=== PATIENT | female | born 1975 | race Caucasian/White ===

== ENCOUNTER → 2020-01-04 14:02 | Outpatient (CLI) | payer OTHER, MEDICAID, SELFPAY ==
[2020-01-04 16:09] LABS: Follicle Stimulating Hormone 0.99 mIU/mL
[2020-01-04 16:53] LABS: Hepatitis B Surface Antigen NEGATIVE s/c (NEGATIVE)
[2020-01-04 17:06] LABS: HIV 1 & 2 Ab/Ag 4th Gen Combo NEGATIVE (NEGATIVE); Hep C Virus Ab w/Reflex Quant NEGATIVE s/c (NEGATIVE)
[2020-01-06 20:37] LABS: RPR Screen Nonreactive (Nonreactive)
[2020-01-14 13:44] LABS: C.trachomatis RNA NOT DETECTED; N.gonorrhoeae RNA NOT DETECTED
== END ==
PROVIDERS: Family Provider Obstetrics & Gynecology; Referring Provider Obstetrics & Gynecology; Visit Provider Obstetrics & Gynecology
DX: Z11.3 Encounter for screening for infections with a predominantly sexual mode of transmission (principal); N95.1 Menopausal and female climacteric states
CPT/HCPCS: 36415; 83001; 86592; 86803; 87340; 87389; 87491; 87591

== ENCOUNTER → 2020-07-25 13:07 | Outpatient (CLI) | payer OTHER, MEDICAID, SELFPAY | PROVIDERS: Family Provider Obstetrics & Gynecology; PCP Obstetrics & Gynecology; Visit Provider Obstetrics & Gynecology | DX: R31.9 Hematuria, unspecified (principal) | CPT/HCPCS: 87086 ==

== ENCOUNTER → 2020-09-17 15:31 | Outpatient (CLI) | payer OTHER, MEDICAID, SELFPAY ==
--- NOTE | 2020-09-17 15:31 | DI.CT.S_ITS ---
PROCEDURE: CT KIDNEY URETER BLADDER (KUB) INDICATIONS: hematuria TECHNIQUE: Noncontrast 5 mm thick sections acquired from the diaphragms to the symphysis. 5 mm thick coronal and sagittal reformats were then performed. For radiation dose reduction, the following was used: automated exposure control, adjustment of mA and/or kV according to patient size. COMPARISON: Outside Film, CT, CT ABDOMEN PELVIS WITHOUT CONTRAST, 10/01/2019, 14:04. FINDINGS: Image quality: Excellent. Lung bases: Lung bases are clear. Heart size is normal. Urinary system: Both kidneys are normal in size. No kidney stones. No hydronephrosis or perinephric fat stranding. Both ureters appear non-dilated throughout their expected courses. Bladder wall thickness is normal; no calcified bladder stones. Other solid organs: Liver is normal in size. 0.8 centimeter hypoattenuating lesion in the posterior-superior subsegment of the right lobe of the liver is stable compared to prior examination and may represent a hepatic cyst. Gallbladder is within normal limits. Pancreas is normal in contours. Spleen is normal in size. No adrenal nodules. Peritoneum and bowel: Unenhanced bowel loops demonstrate normal wall thickness and caliber. Scattered colonic diverticuli noted without evidence of diverticulitis. No free fluid or air. Appendix is normal. Nodes and vessels: No retroperitoneal or mesenteric adenopathy by size criteria. Aorta and inferior vena cava are normal in caliber. Abdominal wall: No ventral hernias. Pelvis: No free pelvic fluid. No inguinal hernias or adenopathy. Bones: No suspicious bony lesions. No vertebral body compression fractures. Spine degenerative disc disease and facet arthropathy. IMPRESSION: 1. No renal stone or hydronephrosis. 2. Colonic diverticulosis without evidence of diverticulitis. Dictated by: Paulina Richter MD, PhD on 09/17/2020 at 16:00 Approved by: Paulina Richter MD, PhD on 09/17/2020 at 16:05
== END ==
PROVIDERS: Family Provider Obstetrics & Gynecology; PCP Obstetrics & Gynecology; Referring Provider Obstetrics & Gynecology; Visit Provider Specialist
DX: R31.9 Hematuria, unspecified (principal); K57.90 Diverticulosis of intestine, part unspecified, without perforation or abscess without bleeding; Z91.041 Radiographic dye allergy status
CPT/HCPCS: 74176

== ENCOUNTER → 2020-10-08 10:49 | Outpatient (CLI) | payer OTHER, MEDICAID, SELFPAY ==
[2020-10-08 11:27] LABS: COVID19 -Nasal RAPID Negative (Negative)
== END ==
PROVIDERS: Family Provider Obstetrics & Gynecology; Visit Provider Obstetrics & Gynecology
DX: Z01.818 Encounter for other preprocedural examination (principal)
CPT/HCPCS: 87635

== ENCOUNTER 2020-10-11 06:45 | Day surgery (SDC) | payer OTHER, MEDICAID, SELFPAY ==
[2020-10-08 15:00] VITALS: BMI 34.8
[2020-10-11] VITALS (18 sets, daily range): BP systolic 112–140; BP diastolic 71–94; PULSE 64–99; RESP 10–16; TEMP 35.7–37.1; O2SAT 95–100; BMI 34.8
--- NOTE | 2020-10-11 | PATH_ITS ---
[facility] Accession Number: [id number] . 01 Material submitted: . PART A: fallopian tube - RIGHT FALLOPIAN TUBE PART B: ovary - LEFT OVARIAN CYST . 01 Clinical history: . PELVIC W/GRADE / CYSTO W/LEVWITCH *OPB* . 02 Diagnosis: A. Right Fallopian Tube, Salpingectomy: Fallopian tube with features of hydrosalpinx. Negative for epithelial atypia or malignancy. . B. Left Ovarian Cyst: Fragments of ovarian cyst, most compatible with benign endometrioma. MRV 10/15/2020 1138 Local . 02 Electronically signed: . Charmaine Desai MD, Pathologist NPI- [id number] . 01 Gross description: . A. Specimen A is received in formalin, labeled right fallopian tube and consists of a 3.0 x 2.0 x 1.5 cm fitzpatrick-pink portion of fallopian tube with attached soft tissue. Sectioning reveals a fitzpatrick mucosa and a lumen measuring 0.5 cm in diameter. The specimen is serially sectioned and entirely submitted in cassettes A1-A3. B. Specimen B is received in formalin, labeled left ovarian cyst and consists of multiple fitzpatrick-pink to brown cyst fragments with a fitzpatrick-pink smooth external surface and a fitzpatrick-pink to brown smooth inner lining with no papillary excrescences. The specimen is serially sectioned and entirely submitted in cassettes B1-B2. ([id number]) /[facility] 10/12/2020 1720 Local . 02 Pathologist provided ICD-10: R10.2, N94.10, R31.9, N32.9 . 02 CPT . 802306, 620298 Performed at: 01 [facility] [address] [place] [address] [address], [place] [id number] MD Servando Astudillo MD Phone: [phone] Performed at: 02 [facility] [address] [place] [id number] MD Caryl Pope MD Phone: [phone]
--- NOTE | 2020-10-11 | DI.RAD.S_ITS ---
PROCEDURE: XR ABDOMEN 1V INDICATIONS: retrograde pyelogram TECHNIQUE: One view of the abdomen acquired. COMPARISON: None. FINDINGS: Bilateral intraoperative fluoroscopic views demonstrate retrograde bilateral pyelograms. IMPRESSION: Single bilateral retrograde intraoperative fluoroscopic pyelograms. Dictated by: Michelle Cervantes M.D. on 10/11/2020 at 9:31 Approved by: Michelle Cervantes M.D. on 10/11/2020 at 9:31
[2020-10-11] MEDS: LACTATED RINGERS 1,000 ML 100 ML IV (07:01)
[2020-10-11] MEDS: CEFAZOLIN 2 GM/100 ML FROZ.PIGGY IV (07:44)
--- NOTE | 2020-10-11 07:44 | PM.PREOP ---
Pre-operative Note Interval Note History & Physical reviewed/Exam performed by Physician: Yes Changes to H&P: No
[2020-10-11] MEDS: IOPAMIDOL 15 ML VIAL INJ (08:15)
--- NOTE | 2020-10-11 08:21 | SUR.OPER ---
Lithotomy on padded OR bed. [place] Pad Positioner under torso. Head on pillow, arms padded and tucked at sides. Legs secured in padded yellow fins stirrups.
--- NOTE | 2020-10-11 08:32 | PM.PREOP ---
Pre-operative Note COVID-19 COVID-19 status: Negative Result date/Date tested (Pos, Neg/Pending): 10/08/20 Interval Note History & Physical reviewed/Exam performed by Physician: Yes Changes to H&P: No H&P completed within 30 days and has changed as indicated here:: 10/08/2020
[2020-10-11] MEDS: BUPIVACAINE 0.5% W/ EPI (PF) 30 ML VIAL INJ (08:50)
--- NOTE | 2020-10-11 09:01 | SUR.OPER ---
post hydrodistension urine amount 725. DMSO instilled, neves clamped for 30 minutes
--- NOTE | 2020-10-11 09:06 | SUR.OPER ---
Time out for laparoscopy procedure at 0842
--- NOTE | 2020-10-11 09:44 | PM.GYNOP.1 ---
Operative Date/Time/Diagnoses Date of procedure: 10/11/20 Time of procedure: 09:44 Pre-op diagnosis: Dyspareunia History of endometriosis Possible left ovary stuck to the cervix Post-op diagnosis: same Procedure & Clinicians Procedure: Procedures Operation Date: 10/11/20 07:45 Actual Procedures Side Surgeon s Cystoscopy/Bilateral Retrograde Pyelograms/ Hydrodistension/ Instillation DMSO Guido Torres MD p Dx Laparoscopy, right salpingectomy, excision of an epicloic appendicy, left ovarian cyst removal. Lysis of adhesions Julieta Ragsdale MD Indications: Dyspareunia History of endometriosis Possible left ovary stuck to the cervix Surgeon: Julieta Ragsdale [employer] Machinist: Crystal Lacy Anesthesia Type: General Operative Notes Findings: Uterus is absent. Cervix is repair taenia lysed. Epiploic appendices see stuck to the right edge of the cervix Adhesions between the bowel and the cervix 2 x 2 cm endometrioma of the left ovary 5 x 3 cm hydrosalpinx on the right Normal right ovary Normal liver and gallbladder Normal appendix Closure Type: primary Specimen(s): portion of right tube and other (Left ovarian endometrioma) Applied: catheter Estimated blood loss (mL): 5 Blood products transfused: none Procedure in detail: The patient was taken to the operating room where she was placed in the dorsal supine position by Dr. Torres. After his retrograde pyelogram and instillation of DMSO in the bladder, the patient was re-prepped and draped in the dorsal lithotomy position. A time-out was performed. A moistened sponge stick was placed into the vagina. Attention was then turned to the abdomen where 6 cc of 0.5% Marcaine with epinephrine were injected in the umbilical fold. A 5 mm incision was made. Veress needle was placed into the peritoneal cavity, and its placement confirmed by aspiration and drop test. The abdominal cavity was insufflated with 3.5 L of CO2. The Veress needle was removed, and a 5 mm trocar was placed without difficulty. Two other incisions were made through previous incisions, 4 cm lateral to the midline, after 6 cc of 0.5% Marcaine with epinephrine were injected. Two 5 mm trocars were placed under direct visualization. A probe was used to remove the bowel from the pelvis. There was some green/yellow fluid. A sample of this fluid was sent to cytology. The left ovary was grasped by the cyst. Using the PlasmaKinetic, the endometrioma was excised from the left ovary. This was brought through the trocar. The right tube was grasped with an atraumatic grasper. Using the PlasmaKinetic, the tube was from the mesosalpinx. The hydrosalpinx was deflated. The tube was brought through the 5 mm trocar. There was an epiploic appendice was stuck to the cervix. This was grasped. It was not connected to anything else other than the cervix. Using the PlasmaKinetic, the epiploic appendices was excised from the cervix and brought through the 5 mm trocar. There were some adhesions between the bowel and the cervix and posterior cul-de-sac. These were taken down with the PlasmaKinetic. The pelvis was copiously irrigated with warm normal saline. There was no bleeding noted. The instruments were removed from the abdomen. The CO2 was allowed to escape. The incisions were repaired with 4 0 Biosyn in a subcuticular fashion. Steri-Strips, gauze, and Op site were placed. The moistened sponge stick was removed from the vagina. Sponge, lap, and instrument counts were correct x2. The patient tolerated the procedure well, and was taken to PACU in stable condition. Complications: none Post-operative Condition: stable Disposition: PACU Plan for aftercare: Home after recovery
[2020-10-11] MEDS: fentaNYL 100 MCG/2 ML INJ IV ×2 (09:56→10:01)
[2020-10-11] MEDS: ONDANSETRON 4 MG/2 ML INJ IV (09:58)
[2020-10-11] MEDS: HYDROMORPHONE 2 MG TABLET PO ×2 (10:22→12:41)
--- NOTE | 2020-10-11 10:52 | SUR.PHASEII ---
Patient received from Phase I recovery nurses in stable condition. Patient remains with ben hugger in place and c/o mild nausea. Patient currently on the bedpan and will call let the nurse know when she is ready to be moved off bedpan. Call light in place.
--- NOTE | 2020-10-11 11:28 | SUR.PHASEII ---
Removed bed pain from patient; patient voided 100 mls clear, yellow urine. Patient denies any pain at this time and c/o mild nausea. Juice provided. Dressings remain clean, dry and intact.
--- NOTE | 2020-10-11 11:50 | SUR.PHASEII ---
Patient ambulating to the bathroom with minimal assistance. Dressings remain clean, dry and intact. All discharge instructions reviewed again with patient.
--- NOTE | 2020-10-11 12:46 | SUR.PHASEII ---
Pt wanting pain pill before she leaves and feeling a bit nauseated as well, order received by Dr Jeornimo and given to pt with some vanilla pudding. MARCOS Corrigan back from lunch break and taking over for me. Pt able to walk back to br to void 2nd time, gait steady.
--- NOTE | 2020-10-12 07:30 | P.OP_ITS ---
Operative Date/Time/Diagnoses Date of procedure: 10/11/20 Time of procedure: 08:20 Pre-op diagnosis: 1. Microscopic hematuria 2. Pelvic pain Post-op diagnosis: same Procedure & Clinicians Procedure: 1. Cystoscopy and bilateral retrograde pyelograms 2. Cystoscopy and hydrodistention 3. Instillation DMSO Same procedure as scheduled: Yes Indications: 1. Microscopic hematuria (IV contrast allergy). 2. Pelvic pain Surgeon: Guido Torres Click Yes if Unassisted: Yes Anesthesia Type: General Operative Notes Findings: 1. Urethra-normal caliber and without lesion. 2. Bladder-normal urothelium throughout. Normal ureteral orifices bilaterally with clear efflux. Bladder capacity for hydrodistention was measured at 725 cc. No significant petechiae formation following 2 minutes hydrodistention. 3. Bilateral retrograde pyelograms-normal appearing collecting systems without filling defect, or hydronephrosis. Both systems drained promptly following performance of retrograde contrast imaging. Closure Type: not applicable Specimen(s): none sent Applied: catheter (Sixteen [place] silicone catheter) Estimated Blood Loss (mL): 0 Blood products transfused: none Tourniquet time (min): 0 Procedure in detail: Patient was positioned in supine and was administered general anesthesia. She was then repositioned in semi lithotomy and the lower abdomen, genitalia, groin, and vaginal vault were prepped and draped in sterile fashion. The 22 [place] panendoscope was then passed lower urinary tract with the findings as described above. A cone-tip catheter was then selected and bilateral retrograde pyelography was performed with the findings as described above. Next, the bladder was filled to capacity and maintained for 2 minutes distention. The bladder was then drained for a measured volume of 725 cc. Upon reinspection of the bladder there were minimal petechiae. 50 cc of DMSO were instilled into the empty bladder and the panendoscope was removed. A 16 [place] silicone Mireles catheter was then dense inserted and clamped for anticipated 30 minutes retention before being placed back to gravity drainage. Dr. Ragsdale then proceeded with her portion of the operative plan, the details of which can be found in her operative report. Complications: none Post-operative Condition: stable Disposition: Acute Care
== END 2020-10-11 13:00 | disposition home or self-care (01) ==
LOC: OR 06:47 → AC 06:50 → OR 11:50
PROVIDERS: Specialist; Family Provider Obstetrics & Gynecology; Referring Provider Obstetrics & Gynecology; Visit Provider Obstetrics & Gynecology
PROC: (CPT 52005; principal; 2020-10-11 07:45)
PROC: 0U5B4ZZ Destruction of Endometrium, Percutaneous Endoscopic Approach (ICD-10-PCS; CPT 58662; 2020-10-11 07:45)
DX: N80.1 Endometriosis of ovary (principal); R31.29 Other microscopic hematuria; R39.15 Urgency of urination; Q43.8 Other specified congenital malformations of intestine; K66.0 Peritoneal adhesions (postprocedural) (postinfection); N70.11 Chronic salpingitis
CPT/HCPCS: 58662; 52005; 58661; 74018; 76000; J0690; J1100; J1885; J2250; J2405; J2704; J3010

== ENCOUNTER → 2023-02-26 15:09 | Outpatient (CLI) | payer OTHER, MEDICAID, SELFPAY ==
--- NOTE | 2023-02-26 15:11 | DI.US.S_ITS ---
PROCEDURE: US PELVIC COMPLETE INDICATIONS: LEFT SIDED PELVIC PAIN TECHNIQUE: Real-time scanning was performed of the pelvic organs, with image documentation. Additional endovaginal scanning was necessary due to incomplete visualization of the adnexal and endometrial structures by transabdominal scanning. COMPARISON: [facility], US, US PELVIC COMPLETE, 07/25/2020, 12:57. FINDINGS: Uterus: Uterus is surgically absent. In the cervix, there is a hypoechoic cystic lesion with posterior acoustic enhancement and no definite solid component measuring 2.7 x 1.6 x 2.1 cm. Additional cystic lesion with echogenic foci in the cervix measuring 1.0 x 0.5 x 0.8 cm. Ovaries: The right ovary measures 2.5 x 2.3 x 2.9 cm, with a calculated ovarian volume of 9 cc. The left ovary measures 2.4 x 1.9 x 2.4 cm, with a calculated ovarian volume of 6 cc. The ovaries have a normal sonographic appearance. Less than 12 follicles can be seen in each ovary. No adnexal masses are seen. Other: No pathologic free abdominal or pelvic fluid. IMPRESSION: Prior hysterectomy. Complex cervical cystic lesions, presumably complex nabothian cysts. Consider 3 to six-month follow-up with ultrasound to establish stability. We strive to produce accurate, complete, and clear reports of imaging services. To assist us in improving patient care, this report was composed using standard report templates and voice recognition software. Therefore, it may contain abnormal punctuation, insertions and/or omissions. Occasional wrong-word or sound-alike substitutions may occur. Though we review the report and make efforts to correct it, we do recommend that the report be read carefully in proper context to recognize any text inaccuracies. Dictated by: Ryan Bernstein M.D. on 02/26/2023 at 16:06 Approved by: Ryan Bernstein M.D. on 02/26/2023 at 16:10
== END ==
PROVIDERS: Family Provider Obstetrics & Gynecology; Referring Provider Obstetrics & Gynecology; Visit Provider Obstetrics & Gynecology
DX: R10.2 Pelvic and perineal pain (principal); N88.8 Other specified noninflammatory disorders of cervix uteri; Z90.710 Acquired absence of both cervix and uterus
CPT/HCPCS: 76830; 76856; 93975

== ENCOUNTER → 2024-08-17 15:56 | Outpatient (CLI) | payer OTHER, MEDICAID, SELFPAY | PROVIDERS: Family Provider Obstetrics & Gynecology; Visit Provider Obstetrics & Gynecology | DX: R31.9 Hematuria, unspecified (principal) | CPT/HCPCS: 81002; 87086 ==